=== PATIENT | male | born 1980 | race Caucasian/White ===

== ENCOUNTER 2018-12-24 22:59 | Emergency (ER) | payer OTHER, MEDICAID, SELFPAY ==
[2018-12-24 23:03] VITALS: BP 153/85; PULSE 104; RESP 18; TEMP 36.3; O2SAT 99; BMI 31.5
--- NOTE | 2018-12-24 23:42 | ED.EXTPRO ---
HPI - Extremity Problem General Chief complaint: Extremity Problem,Nontraumatic Stated complaint: Left foot swelling, red and pain x4 days Time Seen by Provider: 12/24/18 23:23 Source: patient Mode of arrival: ambulatory Limitations: no limitations History of Present Illness HPI Narrative: Patient is a 38-year-old male here for evaluation of swollen red left foot. Patient states it has been worsening for the past 4 days. He states that several days ago he [place] but does not think that he injured his foot. He is not diabetic. He has had cellulitis in the past. No fevers. He states that the redness and the swelling is been worsening over the past couple days. Has not tried anything for it prior to arrival Related Data Previous Rx's Medication Instructions Recorded sulfamethoxazole-trimethoprim 1 tab PO BID 7 Days #14 tab 12/24/18 [Bactrim DS] Allergies Allergy/AdvReac Type Severity Reaction Status Date / Time No Known Drug Allergies Allergy Verified 12/24/18 23:07 Review of Systems Constitutional Denies fever(s) Cardiovascular Denies dyspnea Respiratory Denies dyspnea Musculoskeletal Denies abnormal gait and Denies tingling Comments: Non painful swollen left ankle Integumentary/Breasts Comments: Redness to his left foot Neurologic Denies abnormal gait, Denies tingling and Denies paresthesias Hematologic/Lymphatic Denies easy bleeding and Denies easy bruising FORMERLY [facility] Medical History Patient denies medical problems (Acute) Social History Smoking Status: Current every day smoker Social History Smoking Status: Current every day smoker Exam Initial Vital Signs Initial Vital Signs: Vital Signs Temperature 97.4 F L 12/24/18 23:03 Pulse Rate 104 H 12/24/18 23:03 Respiratory Rate 18 12/24/18 23:03 Blood Pressure 153/85 H 12/24/18 23:03 Pulse Oximetry 99 12/24/18 23:03 Const General: cooperative, healthy appearing, comfortable, well developed, well groomed and No acute distress Orientation: alert and awake Cardio Pulses: dorsalis pedis present on the left Skin Other: Patient with redness to the dorsum of his left foot extending around his ankle slightly up his left lower extremity. No blisters or pustules. Neuro Gait: normal gait Sensory Exam: no sensory deficits noted Extrem Other: Patient with nonpitting edema of the left foot from just proximal to the toes to just proximal to his ankle. Psych Appearance: grossly normal and well kempt Course Orders Ordered: Discontinued Medications Trimethoprim/Sulfamethoxazole (Bactrim Ds) 1 tab PO NOW ONE Stop: 12/24/18 23:44 Last Admin: 12/24/18 23:47 Dose: 1 tab Vital Signs - 8 hr 12/24/18 23:03 12/25/18 00:01 Temperature 97.4 F L Pulse Rate 104 H 90 Respiratory Rate 18 Blood Pressure 153/85 H 153/85 H Pulse Oximetry 99 99 MDM - Extremity (Nontraumatic) MDM Narrative Medical decision making narrative: Patient does have redness and swelling to his left foot and ankle. It is slightly warm to the touch. There are no other changes to the skin. There are no breaks in the skin. He is afebrile. His physical exam is most concerning for a cellulitis. Will start the patient on antibiotics. The redness was outlined with a skin marker. Patient was given his 1st dose here in the emergency department and a prescription for the remainder. He is given return precautions and follow-up instructions. He expressed understanding and agreement with plan. Discharge Plan Departure Patient Disposition: Home Clinical Impression: Cellulitis Qualifiers: Site of cellulitis: extremity Site of cellulitis of extremity: lower extremity Laterality: left Qualified Code(s): L03.116 - Cellulitis of left lower limb Discharge Date/Time: 12/25/18 00:01 Interventions: ED Discharge Assessment Last Done: 12/25/18 00:01 Instructions: DI for Cellulitis -- Adult Activity Restrictions/Additional Instructions: Take the antibiotics as directed. If the redness starts to extend outside of the line that I galo this evening please return to the emergency department for further evaluation. Also please return to the emergency department if you start to develop fevers or other worsening symptoms. Contact your primary care provider for a follow-up. Prescriptions: New sulfamethoxazole-trimethoprim [Bactrim DS] 800-160 mg tablet 1 tab PO BID 7 Days Qty: 14 RF: 0
[2018-12-24] MEDS: TRIMETH/SULFA 160/800 (DS) TABLET 1 TAB PO (23:47)
[2018-12-25 00:01] VITALS: BP 153/85; PULSE 90; O2SAT 99
== END 2018-12-25 00:01 | disposition home or self-care (01) ==
PROVIDERS: Emergency Provider Emergency Medicine
DX: L03.116 Cellulitis of left lower limb (principal)
CPT/HCPCS: 99282; 99283

== ENCOUNTER 2024-01-06 16:17 | Emergency (ER) | payer OTHER, MEDICAID, SELFPAY ==
[2024-01-06 16:44] VITALS: BP 151/85; PULSE 88; RESP 16; TEMP 36.9; O2SAT 99; BMI 27.8
--- NOTE | 2024-01-06 17:25 | PC.NURSE ---
Pt came to ED today because he has a dark red and raised rash on his left arm. Rash is warm to touch. Starts at wrist and small fluid-filled blisters spread to elbow. Pt states that he got bit by something while mowing the lawn and then noticed rash spreading. Denies having any fevers. Denies pain but states rash is itchy and thorpe. No drainage or open wounds noted. States that he put topical cream on last night but it did not help. Pt a&ox4.
--- NOTE | 2024-01-06 17:31 | ED_ITS ---
HPI - Skin/Abscess/Foreign Bdy <Rolando Wang PA-C - Last Filed: 01/06/24 17:46> General Chief complaint: Skin/Abscess/Foreign Body Stated complaint: lt arm skin rash Time Seen by Provider: 01/06/24 17:22 History of Present Illness HPI narrative: this is a 43-year-old male presents emergency department due to A rash developing over the last couple of days to his left arm. It was spread to his right arm. He states that this began after he finished mowing the lawn a couple of days ago. He denies any fevers, nausea, vomiting or any other systemic symptoms. States that it was very itchy. Related Data Previous Rx's Medication Instructions Recorded prednisone 10 mg tablet 10 mg PO DIRECTED #35 tabs 01/06/24 Allergies Allergy/AdvReac Type Severity Reaction Status Date / Time No Known Drug Allergies Allergy Verified 12/24/18 23:07 Review of Systems <Rolando Wang PA-C - Last Filed: 01/06/24 17:46> Review of Systems Narrative: GENERAL: Denies chills, fatigue, malaise, fever, sweats. HEENT: Denies sinus pain, ear pain, sore throat, difficulty swallowing, dizziness. RESPIRATORY: Denies dyspnea, cough, wheezing, hemoptysis, sputum. CARDIOVASCULAR: Denies chest pain, palpitations, orthopnea, edema, GASTROINTESTINAL: Denies nausea, vomiting, abdominal pain, diarrhea, constipation, melena. : Denies dysuria, frequency, incontinence, hematuria, urinary retention. MUSCULOSKELETAL: denies weakness, joint pain, or bony pain SKIN: Rash to left upper extremity NEUROLOGIC: Denies weakness, headache, numbness, change in speech, confusion, seizures, incoordination. PSYCHIATRIC: No concerning psychosocial issues. 12 point review of systems is negative except for those stated above Patient History <Rolando Wang PA-C - Last Filed: 01/06/24 17:46> Medical History (Updated 01/06/24 @ 17:45 by Rolando Wang PA-C) Patient denies medical problems Social History Smoking Status: Current every day smoker Smoking Status: Current every day smoker alcohol intake frequency: 0-2 drinks per day Substance Use Type: marijuana and methamphetamine Exam <CHLOÉ Wallis Last Filed: 01/06/24 17:46> Narrative Exam Narrative: GENERAL: Well-developed patient, in mild distress. HEAD: Atraumatic. Normocephalic. EYES: Pupils equal round and reactive. Extraocular motions intact. No scleral icterus. No injection or drainage. ENT: Nose without bleeding, purulent drainage. Throat without erythema, tonsillar hypertrophy or exudate. Airway patent. NECK: Trachea midline. Non tender EXTREMITIES: No edema or joint tenderness. NEURO: AOx3. SKIN: erythematous vesicular rash to the left forearm with some spreading to the right forearm as well. Not significantly warm to the touch. No purulent drainage. Initial Vital Signs Initial Vital Signs: Vital Signs Temperature 98.4 F 01/06/24 16:44 Pulse Rate 88 01/06/24 16:44 Respiratory Rate 16 01/06/24 16:44 Blood Pressure 151/85 H 01/06/24 16:44 Pulse Oximetry 99 01/06/24 16:44 Oxygen Delivery Method Room Air 01/06/24 16:44 <Teri Talbot DO - Last Filed: 01/07/24 09:49> Initial Vital Signs Initial Vital Signs: Vital Signs Temperature 98.4 F 01/06/24 16:44 Pulse Rate 88 01/06/24 16:44 Respiratory Rate 16 01/06/24 16:44 Blood Pressure 151/85 H 01/06/24 16:44 Pulse Oximetry 99 01/06/24 16:44 Oxygen Delivery Method Room Air 01/06/24 16:44 Course <CHLOÉ Wallis Last Filed: 01/06/24 17:46> Vital Signs Vital signs: Vital Signs - 8 hr 01/06/24 16:44 Temperature 98.4 F Pulse Rate 88 Respiratory Rate 16 Blood Pressure 151/85 H Pulse Oximetry 99 Oxygen Delivery Method Room Air <DO Luis Steele Last Filed: 01/07/24 09:49> Vital Signs Vital signs: Vital Signs - 8 hr 01/06/24 16:44 Temperature 98.4 F Pulse Rate 88 Respiratory Rate 16 Blood Pressure 151/85 H Pulse Oximetry 99 Oxygen Delivery Method Room Air MDM - Skin/Abscess/Foreign Bdy <CHLOÉ Wallis Last Filed: 01/06/24 17:46> MDM Narrative Medical decision making narrative: ED course: This is a 43-year-old male presents to the emergency department due to suspected poison oak dermatitis of the left forearm. Rashes somewhat extensive and we will prescribe oral prednisone. No evidence of cellulitis or any kind of bacterial infection. CC: Left forearm rash Complicating co-morbidities: recent drug use Data collected from: Previous notes Medical records reviewed: Patient was seen 4 years ago due to left foot swelling and pain. Nondiabetic. Prescribed Bactrim for for cellulitis. Differential considered, but not limited to: poison oak dermatitis, cellulitis, bacterial infection Exam documented above, pertinent findings include: rash very consistent with a poison IV dermatitis Lab Test results independently reviewed as above. Pertinent findings: none obtained Imaging studies independently reviewed: none obtained Scores Used: None MIPS Elements: None Consultations: None Treatments: none Re-evaluations: none Discussion: Discussed plan with the patient was comfortable with the plan Diagnosis: poison elisa dermatitis Disposition: see below, along with detailed discharge instructions that have been reviewed with patient as well as indications for ED re-evaluation and additional outpatient follow up Discharge Plan Departure Patient Disposition: Home Clinical Impression: Poison elisa dermatitis Activity Restrictions/Additional Instructions: Thank you for coming to the [facility] Emergency Department today. please take think tear course of oral steroids. [facility] [place] Please return to the emergency department if you develop any Purulent drainage from the wounds or any other concerning signs or symptoms. I hope you feel better soon. Please follow up with your primary care provider within a week if your symptoms continue. If you do not have a primary care provider please contact the [facility] Resource line at [phone]. They will ask some questions about your medical history and help you get set up with a provider in the community. Prescriptions: New prednisone 10 mg tablet 10 mg PO DIRECTED Qty: 35 0RF Rx Instructions: 40 mg for five days, 20 mg for five days, 10 mg for five days Stand Alone Forms: Patient Portal/API ED Sign-out <Teri Talbot DO - Last Filed: 01/07/24 09:49> Cosign ED Attending Ericka Attestation: I was available for consultation.
[2024-01-06 17:53] VITALS: BP 151/72; PULSE 75; RESP 20; TEMP 36.7; O2SAT 98
== END 2024-01-06 17:55 | disposition home or self-care (01) ==
PROVIDERS: Emergency Provider Physician Assistant Medical
DX: L23.7 Allergic contact dermatitis due to plants, except food (principal)
CPT/HCPCS: 99281; 99283